=== PATIENT | male | born 1950 | race Caucasian/White ===

== ENCOUNTER 2018-03-30 21:36 | Emergency (ER) | payer MEDICARE, BC ==
[2018-03-30] MEDS ORDERED: Nitroglycerin 0.4 MG Tab.SL SL PRN (21:55)
[2018-03-30] MEDS ORDERED: Sodium Chloride 0.9% 10 ML Syringe FLUSH PRN (21:55)
[2018-03-30] MEDS ORDERED: Aspirin 81 MG Tab.Chew PO ONE (21:55)
--- NOTE | 2018-03-30 22:00 | EDM.PDOC ---
ED HPI GENERAL MEDICAL PROBLEM - General Chief Complaint: Chest Pain Stated Complaint: CHEST PAIN Time Seen by Provider: 03/30/18 21:51 Source of Information: Reports: Patient, RN Notes Reviewed History Limitations: Reports: No Limitations - History of Present Illness INITIAL COMMENTS - FREE TEXT/NARRATIVE: 67-year-old gentleman presents emergency department today complaint of chest pain, he states the pain started 4 hours ago he describes an elephant sitting on his chest rated the pain 10 out of 10, at this time he is chest pain-free. 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: Other (see below) Other Treatments MALWARE ANALYST: Tums left side chest pain Pain Score (Numeric/FACES): 6 - Related Data Allergies Allergy/AdvReac Type Severity Reaction Status Date / Time hydrocodone AdvReac Nausea Verified 03/30/18 22:15 oxycodone AdvReac Nausea and Verified 03/30/18 22:15 Vomiting anesthesia AdvReac Drowsiness Uncoded 03/30/18 22:15 Home Meds: Home Meds Fluticasone Propionate [Flonase] 2 puff NASBOTH DAILY PRN 01/04/15 [History] Ibuprofen [Ibuprofen Ib] 400 mg PO BID PRN 01/04/15 [History] Levothyroxine Sodium [Synthroid] 75 mcg PO DAILY 01/04/15 [History] Lisinopril/Hydrochlorothiazide [Lisinopril-Hctz 20-25 mg Tab] 1 tab PO DAILY 09/19 [History] Simvastatin [Zocor] 20 mg PO BEDTIME 01/04/15 [History] metFORMIN HCl [Metformin HCl] 500 mg PO BID 01/04/15 [History] Gabapentin [Neurontin] 600 mg PO BID 03/27/18 [History] Acetaminophen [Tylenol Arthritis] 1,300 mg PO ASDIRECTED PRN 03/30/18 [History] Past Medical History HEENT History: Reports: Impaired Vision Other HEENT History: wears glasses Cardiovascular History: Reports: Arrhythmia, Heart Murmur, High Cholesterol, Hypertension, Other (See Below) Other Cardiovascular History: right bundle branch block Gastrointestinal History: Reports: Chronic Diarrhea Musculoskeletal History: Reports: Other (See Below) Other Musculoskeletal History: R knee pain Endocrine/Metabolic History: Reports: Diabetes, Type II, Hypothyroidism Dermatologic History: Reports: Eczema - Infectious Disease History Infectious Disease History: Reports: Chicken Pox, Measles, Mumps, Rubella, Shingles - Past Surgical History Musculoskeletal Surgical History: Reports: Hip Replacement, Other (See Below) Social & Family History - Family History HEENT: Reports: Retinal Detachment Cardiac: Reports: High Cholesterol, Hypertension, [place] Respiratory: Reports: Other (See Below) Other Respiratory Family Hisory: emphysema GI: Reports: Chronic Diarrhea Neurological: Reports: Alzheimers Disease Oncologic: Reports: Breast - Caffeine Use Caffeine Use: Reports: Coffee, Tea ED ROS GENERAL - Review of Systems Review Of Systems: See Below Constitutional: Reports: No Symptoms HEENT: Reports: No Symptoms Respiratory: Reports: Shortness of Breath Cardiovascular: Reports: Chest Pain GI/Abdominal: Reports: Nausea : Reports: No Symptoms Musculoskeletal: Reports: No Symptoms Skin: Reports: No Symptoms Neurological: Reports: No Symptoms ED EXAM, GENERAL - Physical Exam Exam: See Below Exam Limited By: No Limitations General Appearance: Alert, WD/WN, No Apparent Distress Head: Atraumatic, Normocephalic Neck: Normal Inspection, Supple, Non-Tender, Full Range of Motion Respiratory/Chest: No Respiratory Distress, Lungs Clear, Normal Breath Sounds, No Accessory Muscle Use, Chest Non-Tender Cardiovascular: Regular Rate, Rhythm, Systolic Murmur GI/Abdominal: Soft, Non-Tender Extremities: Non-Tender, No Pedal Edema Course - Vital Signs Last Recorded V/S: Last Vital Signs Temp 99.0 F 03/31/18 00:15 Pulse 81 03/31/18 00:15 Resp 20 03/31/18 00:15 BP 153/92 H 03/31/18 00:15 Pulse Ox 95 03/31/18 00:15 - Orders/Labs/Meds Orders: Active Orders 24 hr Category Date Time Status Cardiac Monitoring [RC] .As Directed Care 03/30/18 21:55 Active EKG Documentation Completion [RC] ASDIRECTED Care 03/30/18 21:56 Active Peripheral IV Care [RC] . DIRECTED Care 03/30/18 21:56 Active Chest 1V Frontal [CR] Stat Exams 03/30/18 21:56 Taken Nitroglycerin [Nitrostat] Med 03/30/18 21:55 Active 0.4 mg SL Q5M PRN Sodium Chloride 0.9% [Saline Flush] Med 03/30/18 21:55 Active 10 ml FLUSH ASDIRECTED PRN Peripheral IV Insertion Adult [OM.PC] Stat Oth 03/30/18 21:55 Ordered Saline Lock Insert [OM.PC] Stat Oth 03/30/18 21:55 Ordered EKG 12 Lead [EK] Stat Ther 03/30/18 21:56 Ordered Medication Orders Nitroglycerin (Nitrostat) 0.4 mg SL Q5M PRN PRN Reason: Chest Pain Stop: 03/31/18 21:55 Last Admin: 03/30/18 22:08 Dose: 0.4 mg Sodium Chloride (Saline Flush) 10 ml FLUSH ASDIRECTED PRN PRN Reason: Keep Vein Open Last Admin: 03/30/18 22:08 Dose: 10 ml Labs: Laboratory Tests 03/30/18 03/30/18 03/31/18 Range/Units 21:55 21:55 00:40 WBC 14.8 H (4.5-11.0) K/uL RBC 5.77 (4.30-5.90) M/uL Hgb 17.4 H (12.0-15.0) g/dL Hct 51.1 (40.0-54.0) % MCV 89 (80-98) fL MCH 30 (27-31) pg MCHC 34 (32-36) % Plt Count 230 (150-400) K/uL Neut % (Auto) 65 (36-66) % Lymph % (Auto) 24 (24-44) % [place] % (Auto) 10 H (2-6) % Eos % (Auto) 1 L (2-4) % Baso % (Auto) 0 (0-1) % Sodium 137 L (140-148) mmol/L Potassium 4.0 (3.6-5.2) mmol/L Chloride 100 (100-108) mmol/L Carbon Dioxide 26 (21-32) mmol/L Anion Gap 15.0 H (5.0-14.0) mmol/L BUN 21 H (7-18) mg/dL Creatinine 1.2 (0.8-1.3) mg/dL Est Cr Clr Drug Dosing 54.32 mL/min Estimated GFR (MDRD) > 60 (>60) Glucose 287 H (74-106) mg/dL Calcium 9.3 (8.5-10.1) mg/dL Total Bilirubin 0.9 (0.2-1.0) mg/dL AST 50 H (15-37) U/L ALT 95 H (12-78) U/L Alkaline Phosphatase 157 H (46-116) U/L Troponin I < 0.017 < 0.017 (0.000-0.056) ng/mL Total Protein 7.4 (6.4-8.2) g/dL Albumin 3.8 (3.4-5.0) g/dL Globulin 3.6 H (2.3-3.5) g/dL Albumin/Globulin Ratio 1.1 L (1.2-2.2) Meds: Medications Generic Name Dose Route Start Last Admin Trade Name Freq PRN Reason Stop Dose Admin Nitroglycerin 0.4 mg 03/30/18 21:55 03/30/18 22:08 Nitrostat SL 03/31/18 21:55 0.4 mg Q5M PRN Administration Chest Pain Sodium Chloride 10 ml 03/30/18 21:55 03/30/18 22:08 Saline Flush FLUSH 10 ml ASDIRECTED PRN Administration Keep Vein Open Discontinued Medications Generic Name Dose Route Start Last Admin Trade Name Freq PRN Reason Stop Dose Admin Aspirin 324 mg 03/30/18 21:55 03/30/18 22:07 Aspirin PO 03/30/18 21:56 324 mg ONETIME ONE Administration Departure - Departure Time of Disposition: 01:15 Disposition: Home, Self-Care 01 Condition: Good Clinical Impression: Atypical chest pain Referrals: Lit Ybarra MD [Primary Care Provider] - Forms: ED Department Discharge Additional Instructions: Continue with your regular medications, please follow-up with your primary care provider in the next 3-5 days for reevaluation discussed the possibility of a stress test and further workup - My Orders Last 24 Hours: My Active Orders 03/30/18 21:55 Cardiac Monitoring [RC] .As Directed Nitroglycerin [Nitrostat] 0.4 mg SL Q5M PRN Sodium Chloride 0.9% [Saline Flush] 10 ml FLUSH ASDIRECTED PRN Peripheral IV Insertion Adult [OM.PC] Stat Saline Lock Insert [OM.PC] Stat 03/30/18 21:56 EKG Documentation Completion [RC] ASDIRECTED Peripheral IV Care [RC] . DIRECTED Chest 1V Frontal [CR] Stat EKG 12 Lead [EK] Stat - Assessment/Plan Last 24 Hours: My Active Orders 03/30/18 21:55 Cardiac Monitoring [RC] .As Directed Nitroglycerin [Nitrostat] 0.4 mg SL Q5M PRN Sodium Chloride 0.9% [Saline Flush] 10 ml FLUSH ASDIRECTED PRN Peripheral IV Insertion Adult [OM.PC] Stat Saline Lock Insert [OM.PC] Stat 03/30/18 21:56 EKG Documentation Completion [RC] ASDIRECTED Peripheral IV Care [RC] . DIRECTED Chest 1V Frontal [CR] Stat EKG 12 Lead [EK] Stat Plan: Assessment Acuity = acute Site and laterality = chest pain complicated patient with known history of diabetes mellitus type 2 and hypertension Etiology = unclear etiology suspicious for gastroesophageal reflux Manifestations = none Location of injury = Home Lab values = WBC elevated at 14.8 consistent leukocytosis, glucose elevated 287 consistent hyperglycemia AST elevated at 50 ALTs elevated 157 consistent elevated liver enzymes, troponin was negative 2 EKG demonstrates right bundle branch block with no ST changes chest x-ray shows no acute process pending read radiology Plan He remained chest pain-free while in the emergency department plan is to him follow-up with his primary care in the next 3-5 days for reevaluation This note was dictated using [employer] voice recognition software please call with any questions on syntax or grammar.
[2018-03-31 01:19] VITALS: BP 151/90
--- NOTE | 2018-03-31 10:06 | CR ---
CHEST: Portable CLINICAL HISTORY:Has pain COMPARISON:2016 FINDINGS: Heart size and pulmonary vascularity is normal. There are atherosclerotic changes in the a nilsa.. The lung rajan are clear. IMPRESSION: No acute cardiopulmonary process
== END 2018-03-31 01:23 | disposition home or self-care (01) ==
LOC: JP.ED 21:36
DX: R07.89 Other chest pain (principal); E11.9 Type 2 diabetes mellitus without complications; I10 Essential (primary) hypertension; E78.00 Pure hypercholesterolemia, unspecified; E03.9 Hypothyroidism, unspecified; Z88.6 Allergy status to analgesic agent; Z88.4 Allergy status to anesthetic agent
CPT/HCPCS: 36415; 71045; 80053; 84484; 85025; 93005; 99285; A9270; J7050

== ENCOUNTER 2023-01-09 08:20 | Emergency (ER) | payer OTHER ==
[2023-01-09 08:38] VITALS: BP 129/73; PULSE 81
== END 2023-01-09 09:30 | disposition home or self-care (01) ==
LOC: JP.ED 08:20
DX: S61.412A Laceration without foreign body of left hand, initial encounter (principal); I10 Essential (primary) hypertension; E11.9 Type 2 diabetes mellitus without complications; E03.9 Hypothyroidism, unspecified; Z88.5 Allergy status to narcotic agent; Z79.899 Other long term (current) drug therapy; Z88.4 Allergy status to anesthetic agent
CPT/HCPCS: 12001; 99283

== ENCOUNTER 2023-05-02 05:55 | Day surgery (SDC) | payer MEDICARE, OTHER ==
[2023-05-02] MEDS ORDERED: Sodium Chloride 0.9% 10 ML Syringe FLUSH SCH (06:30)
[2023-05-02 08:31] VITALS: BP 155/88; PULSE 84
== END 2023-05-02 08:34 | disposition home or self-care (01) ==
LOC: JP.SDS 05:55
PROVIDERS: ATTEND Ophthalmology
DX: E11.36 Type 2 diabetes mellitus with diabetic cataract (principal); H26.9 Unspecified cataract; K21.9 Gastro-esophageal reflux disease without esophagitis; K76.0 Fatty (change of) liver, not elsewhere classified; Z88.5 Allergy status to narcotic agent
CPT/HCPCS: 66984; V2632

== ENCOUNTER 2023-05-16 06:27 | Day surgery (SDC) | payer MEDICARE ==
[2023-05-16] MEDS: Sodium Chloride 0.9% 10 ML Syringe FLUSH SCH (08:04)
[2023-05-16 08:05] VITALS: BP 135/88; PULSE 80
== END 2023-05-16 08:09 | disposition home or self-care (01) ==
LOC: JP.SDS 06:27
PROVIDERS: ATTEND Ophthalmology
DX: H26.9 Unspecified cataract (principal); Z88.5 Allergy status to narcotic agent
CPT/HCPCS: J3490; V2632